=== PATIENT | male | born 1950 | race Caucasian/White ===

== ENCOUNTER → 2016-09-30 | Outpatient (CLI) | payer OTHER ==
[~2016-09-30] MED LIST: ASPEC325 PO; CALC500C70 PO; DICL-201 PO; FISHOIL PO; METF500T PO; MULTTAB58 PO; PANT1TAB48 PO
== END | disposition home or self-care (01) ==
LOC: C.LABSPEC 17:01
PROVIDERS: ATTEND Podiatrist
DX: Z48.817 Encounter for surgical aftercare following surgery on the skin and subcutaneous tissue (principal); M79.675 Pain in left toe(s)

== ENCOUNTER → 2017-10-18 | Day surgery (SDC) | payer OTHER ==
[2017-10-01 14:10] VITALS: Ht 177.8 cm; Wt 109.1 kg
[~2017-10-18] VITALS: Ht 177.8 cm; Wt 109.1 kg
[~2017-10-18] MED LIST changes: +ASPCH81X PO; -ASPEC325 PO; -CALC500C70 PO; +CALCTAB5 PO; +FERR1TAB23 PO; -FISHOIL PO; +GLC/500 PO; +LABETALOL HCL IV 5 MG/ML 20ML IV ONE; +LIDOCAINE HCL 2% 2 ML VIAL (20MG/ML) ONE; +LOSA1TAB PO; -METF500T PO; +MULT-1093 PO; -MULTTAB58 PO; +PANT1TAB3 PO; -PANT1TAB48 PO; +PROPOFOL IV EMULSION 10 MG/ML 20 ML VIAL IV ONE; +SODIUM CHLORIDE 0.9% 500ML 500 ML IV ONE; +VITAMIN C PO
--- NOTE | 2017-10-18 13:24 | Endo History and Physical ---
History & Physical Date of Service: Oct 18, 2017. Chief Complaint: Gonzales's Esophagus Referring Physician: Saleem Lombardi History of Present Illness 66 yo CM who presents for EGD secondary to Gonzales's esophagus. Past Medical History Arthritis, Reflux, Other Past Surgical History Hx Cardiac Surgery: No Hx Internal Defibrillator: No Hx Pacemaker: No Hx Abdominal Surgery: No Hx of Implantable Prosthesis: No Hx Post-Op Nausea and Vomiting: No Hx Cancer Surgery: No Hx Thoracic Surgery: No Hx Orthopedic: Yes (LEFT/RT TKA, RT SHOULDER SURGERY) Hx Urinary Tract Surgery: No Family History None Social History Smoking Status: Former Smoker Hx Substance Use: No Hx Alcohol Use: Yes (OCCASIONALLY) Allergies Coded Allergies: Penicillins (Unverified Allergy, Unknown, COLD/HOT FLASHES UPSET STOMACH, 10/18/17) Cephalexin (Verified Adverse Reaction, Unknown, gi upset-vomiting, 10/18/17 ) Cephalosporins (Verified Adverse Reaction, Unknown, GI UPSET, 10/18/17) Current Medications Reported Home Medications Medications Dose Route/Sig Max Daily Dose Days Date Category Dose Instructions [Vitamin C] 1 Tab PO HS 10/01/17 Reported Iron (Ferrous Sulfate) 325 Mg Tab 1 Tab PO HS 10/01/17 Reported Caltrate 600 (Calcium Carbonate) 1,500 Mg Tab 1 Tab PO QAM 10/01/17 Reported Centrum Silver 50+Men (Multiple Vitamins W/ Minerals) 1 Tab Tab 1 Tab PO HS 10/01/17 Reported Aspirin Chewable (Aspirin) 81 Mg Chew 81 Mg PO HS 10/01/17 Reported Protonix (Pantoprazole) 40 Mg Tab 40 Mg PO QAM 10/01/17 Reported Cozaar (Losartan Potassium) 25 Mg Tab 25 Mg PO QAM 10/01/17 Reported Voltaren (Diclofenac Sodium) 75 Mg Tabcr 75 Mg PO QAM 10/01/17 Reported WITH FOOD Glucophage (Metformin Hcl) 500 Mg Tab 500 Mg PO BID 10/01/17 Reported Vital Signs Weight (Kilograms): 109.09 Height (Feet): 5 Height (Inches): 10 Date Time Temp Pulse Resp B/P (MAP) Pulse Ox O2 Delivery O2 Flow Rate FiO2 10/18/17 13:04 36.4 58 18 137/92 (107) 97 Room Air Physical Exam General Appearance: WD/WN, no apparent distress Respiratory/Chest: Auscultation: breath sounds normal Cardiovascular: Heart Auscultation: RRR Abdomen: Bowel Sounds: normal Inspection & Palpation: soft, non-distended, no tenderness, guarding & rebound Assessment and Plan Assessment: 66 yo CM who presents for EGD secondary to Gonzales's esophagus. Plan: Proceed with EGD.
--- NOTE | 2017-10-18 14:25 | GI REPORT ---
Procedure Date: 10/18/2017 2:01 PM Procedure: Upper GI endoscopy Indications: Follow-up of Gonzales's esophagus Medicines: Monitored Anesthesia Care Complications: No immediate complications. Estimated Blood Loss: Estimated blood loss: none. Procedure: Pre-Anesthesia Assessment: - Prior to the procedure, a History and Physical was performed, and patient medications and allergies were reviewed. The patient's tolerance of previous anesthesia was also reviewed. The risks and benefits of the procedure and the sedation options and risks were discussed with the patient. All questions were answered, and informed consent was obtained. Prior Anticoagulants: The patient has taken no previous anticoagulant or antiplatelet agents. ASA Grade Assessment: II - A patient with mild systemic disease. After reviewing the risks and benefits, the patient was deemed in satisfactory condition to undergo the procedure. After obtaining informed consent, the endoscope was passed under direct vision. Throughout the procedure, the patient's blood pressure, pulse, and oxygen saturations were monitored continuously. The scope was introduced through the mouth, and advanced to the second part of duodenum. The upper GI endoscopy was accomplished with ease. The patient tolerated the procedure well. Findings: There were esophageal mucosal changes consistent with short-segment Gonzales's esophagus present at the gastroesophageal junction. The maximum longitudinal extent of these mucosal changes was 2 cm in length. Mucosa was biopsied with a cold forceps for histology. One specimen bottle was sent to pathology. A small hiatal hernia was present. The examined duodenum was normal. Impression: - Esophageal mucosal changes consistent with short-segment Gonzales's esophagus. Biopsied. - Small hiatal hernia. - Normal examined duodenum. Recommendation: - Resume previous diet. - Continue present medications. - Await pathology results. - Return to primary care physician as previously scheduled. Bart Lamas, DO 10/18/2017 2:24:19 PM This report has been signed electronically. Note Initiated On: 10/18/2017 2:01 PM I attest to the content of the Intraoperative Record and orders documented therein, exceptions below
--- NOTE | 2017-10-18 14:35 | Anesthesiology Progress Note ---
Anesthesia Post Op Note Date & Time Oct 18, 2017 at 14:34 Vital Signs Pain Intensity: 0 Vital Signs Past 12 Hours Date Time Temp Pulse Resp B/P (MAP) Pulse Ox O2 Delivery O2 Flow Rate FiO2 10/18/17 14:15 72 18 144/89 (107) 96 Room Air 10/18/17 13:04 36.4 58 18 137/92 (107) 97 Room Air Notes Mental Status: alert / awake / arousable, participated in evaluation Pt Amnestic to Procedure: Yes Nausea / Vomiting: adequately controlled Pain: adequately controlled Airway Patency, RR, SpO2: stable & adequate BP & HR: stable & adequate Hydration State: stable & adequate Anesthetic Complications: no major complications apparent
--- NOTE | 2017-10-18 14:58 | Discharge Instructions ---
Endoscopy Patient Instructions Date / Procedure(s) Performed Oct 18, 2017. EGD Allergy Information Coded Allergies: Penicillins (Unverified Allergy, Unknown, COLD/HOT FLASHES UPSET STOMACH, 10/18/17) Cephalexin (Verified Adverse Reaction, Unknown, gi upset-vomiting, 10/18/17 ) Cephalosporins (Verified Adverse Reaction, Unknown, GI UPSET, 10/18/17) Discharge Date / Findings Oct 18, 2017. Gonzales's Esophagus s/p biopsies Hiatal hernia Medication Instructions Stopped Medication(s): EVERYTHING EXCEPT PROTONIX OK to resume all medications today as prescribed Reported Home Medications Medications Dose Route/Sig Max Daily Dose Days Date Category Dose Instructions [Vitamin C] 1 Tab PO HS 10/01/17 Reported Iron (Ferrous Sulfate) 325 Mg Tab 1 Tab PO HS 10/01/17 Reported Caltrate 600 (Calcium Carbonate) 1,500 Mg Tab 1 Tab PO QAM 10/01/17 Reported Centrum Silver 50+Men (Multiple Vitamins W/ Minerals) 1 Tab Tab 1 Tab PO HS 10/01/17 Reported Aspirin Chewable (Aspirin) 81 Mg Chew 81 Mg PO HS 10/01/17 Reported Protonix (Pantoprazole) 40 Mg Tab 40 Mg PO QAM 10/01/17 Reported Cozaar (Losartan Potassium) 25 Mg Tab 25 Mg PO QAM 10/01/17 Reported Voltaren (Diclofenac Sodium) 75 Mg Tabcr 75 Mg PO QAM 10/01/17 Reported WITH FOOD Glucophage (Metformin Hcl) 500 Mg Tab 500 Mg PO BID 10/01/17 Reported Provider Instructions Activity Restrictions - No exercising or heavy lifting for 24 hours. - Do not drink alcohol the day of the procedure. - Do not drive a car or operate machinery until the day after the procedure. - Do not make any important decisions or sign important papers in 24 hours after the procedure. Following Day: - Return to full activity which may include returning to work/school. Diet Start your diet with liquids and light foods (jello, soup, juice, toast). Then eat your usual diet if not nauseated. Treatment For Common After Affects For mild abdominal pain, bloating, or excessive gas: - Rest - Eat lightly - Lie on right side Follow-Up Information Follow-up with as scheduled Anesthesia Information What You Should Know You have had a procedure that required some medicine to reduce anxiety and discomfort. This treatment is called moderate sedation. After receiving the treatment, you may be sleepy, but you will be able to breathe on your own. The effects of the treatment may last for several hours. Follow these instructions along with Activity/Diet recommendations noted above: * Do NOT do anything where dizziness or clumsiness would be dangerous. * Rest quietly at home today, then you can be up and about tomorrow. * Have a responsible person stay with you the rest of today. * You may have had an I.V. today. If so, you may take the dressing off later today. Recommendations Call your doctor if: * Trouble breathing * Continuous vomiting for more than 24 hours * Temperature above 101 degrees * Severe abdominal pain or bloating * Pain not relieved by pain medicine ordered * There is increased drainage or redness from any incision * A large amount of rectal bleeding greater than 2-3 tablespoons. (If you had a polyp/s removed or have hemorrhoids, a small amount of blood - from the rectum is to be expected.) * You have any unanswered questions or concerns. IN THE EVENT OF A SERIOUS EMERGENCY, GO TO THE NEAREST EMERGENCY ROOM Your discharge instructions were prepared by provider Bart Lamas. Patient Instructions Signature Page Tai Patten Patient (or Guardian) Signature/Date: I have read and understand the instructions given to me by my caregivers. Caregiver/RN/Doctor Signature/Date: The above-named patient and/or guardian has received patient instructions on this date. + Original Patient Signature Page (only) stays with chart. Please make copy for patient.
[2017-10-18 15:02] VITALS: BP 147/93; PULSE 54; O2SAT 97
== END | disposition home or self-care (01) ==
LOC: C.GI 12:16
PROVIDERS: ATTEND Internal Medicine
DX: K20.9 Esophagitis, unspecified (principal); K22.70 Barrett's esophagus without dysplasia; M19.90 Unspecified osteoarthritis, unspecified site; K44.9 Diaphragmatic hernia without obstruction or gangrene; K21.9 Gastro-esophageal reflux disease without esophagitis; Z96.653 Presence of artificial knee joint, bilateral; Z87.891 Personal history of nicotine dependence; Z88.0 Allergy status to penicillin; Z88.2 Allergy status to sulfonamides; Z79.82 Long term (current) use of aspirin; Z79.899 Other long term (current) drug therapy; Z79.84 Long term (current) use of oral hypoglycemic drugs

== ENCOUNTER 2022-04-22 08:22 | Inpatient (IN) ==
--- NOTE | 2022-03-24 16:28 | PAT Medication Instructions ---
Medication Instructions Date of Service March 24, 2022 Home Medications Medication Instructions Recorded losartan 50 mg tablet 50 mg PO QAM 90 days #90 tabs 02/26/21 pantoprazole 40 mg tablet,delayed 40 mg PO QAM #90 tabs 10/07/21 release metformin 500 mg tablet 500 mg PO BID #180 tabs 02/12/22 diclofenac sodium 75 mg 75 mg PO BID #180 tabs 03/24/22 tablet,delayed release ascorbic acid (vitamin C) 500 mg tablet (Vitamin C) 500 mg PO QAM aspirin 81 mg tablet,delayed release (Sil Low Dose Aspirin) 81 mg PO HS calcium carbonate 600 mg calcium (1,500 mg) tablet 600 mg PO QAM ferrous sulfate 325 mg (65 mg iron) tablet 325 mg PO HS clindamycin HCl 300 mg capsule 600 mg PO UD PRN losartan 50 mg tablet 50 mg PO QAM pantoprazole 40 mg tablet,delayed release 40 mg PO QAM biotin 5 mg capsule 5 mg PO QAM multivitamin 1 tab PO QAM vitamin B complex (B Complex-Vitamin B12 tablet) 1 tab PO QAM metformin 500 mg tablet 500 mg PO BID diclofenac sodium 75 mg tablet,delayed release 75 mg PO BID losartan 25 mg tablet 25 mg PO HS Continue as directed clindamycin HCl 300 mg capsule 600 mg PO UD PRN(if needed) ASK your surgeon for instructions diclofenac sodium 75 mg tablet,delayed release 75 mg PO BID STOP taking 2 weeks before surgery biotin 5 mg capsule 5 mg PO QAM DO NOT take the morning of surgery ascorbic acid (vitamin C) 500 mg tablet (Vitamin C) 500 mg PO QAM calcium carbonate 600 mg calcium (1,500 mg) tablet 600 mg PO QAM losartan 50 mg tablet 50 mg PO QAM multivitamin 1 tab PO QAM vitamin B complex (B Complex-Vitamin B12 tablet) 1 tab PO QAM metformin 500 mg tablet 500 mg PO BID Take morning of surgery With a small sip of water, OTHERWISE NOTHING TO EAT OR DRINK AFTER MIDNIGHT: pantoprazole 40 mg tablet,delayed release 40 mg PO QAM Take evening before surgery aspirin 81 mg tablet,delayed release (Sil Low Dose Aspirin) 81 mg PO HS (unless directed otherwise by surgeon) ferrous sulfate 325 mg (65 mg iron) tablet 325 mg PO HS metformin 500 mg tablet 500 mg PO BID losartan 25 mg tablet 25 mg PO HS Other Notes If you have any questions please call us at [phone] or [phone] or [phone] or [phone]
--- NOTE | 2022-04-01 08:56 | Anesthesiology Consultation ---
Date of Service April 01, 2022 Assessment & Plan (1) Encounter for pre-operative examination: - COVID screening: Per assessment on 03/24: No known COVID-19 positive contacts or current COVID-19 related symptoms. Travel screen negative. Patient vaccinated. At surgeon discretion if preop Covid testing being done. - S/P Colonoscopy (11/26/21): MAC at [facility] - S/P Right TKA (09/27/15): SAB at L3/4 (x3 attempts) + PNB. Per anesthesia record, several unsuccessful attempts midline, one successful paramedian attempt at [facility]. - Check [facility] AM DOS Chart Review Chart Review: Acceptable Risk for Surgery and Patient seen in Pre Admission Testing Teaching & Discussion Pre-Anesthesia Teaching/Discussion Notes: Instructed NPO after midnight before surgery,except medications with 15 cc of water. Medication instructions provided according to the PAT guidelines. History Surgery Operation Date: 04/22/22 09:05 Proposed Procedures p Left Total Knee Revision, Possible Antibiotic Spacer Placement - Mukund Nguyen MD Height/Weight Height: 5 ft 9 in Weight: 105.9 kg Allergies Allergy/AdvReac Type Severity Reaction Status Date / Time Penicillins AdvReac Intermediate Cold/hot Verified 03/27/22 09:05 flashes, upset stomach Cephalosporins AdvReac Mild GI upset Verified 03/27/22 09:05 Medications Home Medications Medication Instructions Recorded Confirmed Last Taken ascorbic acid (vitamin C) 500 mg 500 mg PO QAM 07/11/18 03/24/22 11/25/21 08:00 tablet (Vitamin C) aspirin 81 mg tablet,delayed 81 mg PO HS 07/11/18 03/24/22 11/24/21 21:00 release (Sil Low Dose Aspirin) calcium carbonate 600 mg calcium 600 mg PO QAM 07/11/18 03/24/22 11/25/21 08:00 (1,500 mg) tablet ferrous sulfate 325 mg (65 mg 325 mg PO HS 07/11/18 03/24/22 11/24/21 21:00 iron) tablet clindamycin HCl 300 mg capsule 600 mg PO UD PRN prior to dental 09/03/20 03/24/22 Unknown appointment losartan 50 mg tablet 50 mg PO QAM 90 days #90 tabs 02/26/21 03/24/22 11/26/21 06:00 pantoprazole 40 mg tablet,delayed 40 mg PO QAM #90 tabs 10/07/21 03/24/22 11/26/21 06:00 release biotin 5 mg capsule 5 mg PO QAM 10/23/21 03/24/22 11/25/21 08:00 multivitamin 1 tab PO QAM 10/23/21 03/24/22 11/25/21 08:00 vitamin B complex (B 1 tab PO QAM 10/23/21 03/24/22 11/25/21 08:00 Complex-Vitamin B12 tablet) metformin 500 mg tablet 500 mg PO BID #180 tabs 02/12/22 03/24/22 Unknown diclofenac sodium 75 mg 75 mg PO BID #180 tabs 03/24/22 03/24/22 Unknown tablet,delayed release losartan 25 mg tablet 25 mg PO HS 03/24/22 03/24/22 Unknown Past Medical History Medical History 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 Hiatal hernia History of basal cell carcinoma History of COVID-19 Dx 04/2021, mild symptoms at time, resolved Hypertension Lumbar radiculopathy Obesity Painful total knee replacement, left Prediabetes Reason for Metformin Spinal stenosis of lumbar region Exercise / Class Metabolic Activity II 4-5 Yardwork/Stairs/Walk up hill (one FS (no CP, no SOB)) Past Family History Family History Father Prostate cancer Family history of diabetes mellitus Other No family history of adverse response to anesthesia Denies family history of Colon cancer Ovarian cancer Myocardial infarction Breast cancer Past Surgical History Surgical History History of arthroscopy of left knee History of basal cell carcinoma (BCC) excision History of colonoscopy Colonoscopy (11/26/21): MAC at [facility] History of esophagogastroduodenoscopy (EGD) History of shoulder surgery Right shoulder History of tonsillectomy History of tooth extraction History of total left knee replacement (TKR) History of total right knee replacement (TKR) Right TKA (09/27/15): SAB at L3/4 (x3 attempts) + PNB. Per anesthesia record, several unsuccessful attempts midline, one successful paramedian attempt at [facility]. Hx of LASIK Status post epidural steroid injection Past Anesthesia History No Hx of Anesthesia Complications and No Family Hx of Anesthesia Complications History of PONV No Hx of PONV and No Hx of Motion Sickness Social History Smoking Status: Former smoker tobacco type: cigarettes Do You Dip or Chew Tobacco: No Smoking End Date: Quit 20 years ago Hx Alcohol Use: Yes Alcohol type: beer alcohol intake frequency: holidays/special occasions only Hx Substance Use: No substance use type: does not use Review of Systems Patient denies chest pain, shortness of breath, dyspnea on exertion, fever, chills, cough, wheezing, palpitations. Physical Exam Vital Signs VITALS BP 144/85 P 58 TEMP 97.6 SP02 97%RA RESP 16 PHYSICAL Full cervical extension range of motion. Full TMJ range of motion. TMD 3.5 finger breaths Mallampati Score 2 Dentition: intact Lungs: clear throughout to auscultation Cardiac: regular rate and rhythm, no murmurs noted Spine: normal Carotid arteries: negative bruit Extremities: no edema Short neck Lab Results Anesthesia Preop Results Results Anesthesia Widget: WBC 5.51 K/ul (4.8-10.8) 04/01/22 Hgb 15.1 g/dl (14.0-18.0) 04/01/22 Hct 44.0 % (40.1-51.0) 04/01/22 Plt 262 K/uL (130-400) 04/01/22 Na 139 mmol/L (136-145) 04/01/22 K 4.3 mmol/L (3.5-5.1) 04/01/22 Cl 106 mmol/L (98-107) 04/01/22 CO2 28 mmol/L (21-32) 04/01/22 BUN 20 mg/dl (6-23) 04/01/22 Creat 0.85 mg/dl (0.6-1.4) 04/01/22 Glucose Level 107 mg/dl (70-99(Fasting)) H 04/01/22 PT 10.5 Seconds (9.0-12.0) 04/01/22 PTT 28.9 Seconds (21.0-31.0) 04/01/22 INR 1.0 (0.9-1.1) 04/01/22 Blood Type O Positive 04/01/22 Antibody Screen NEGATIVE 04/01/22 Testing Laboratory Results 11/21/21 HGBA1C 6.2% Electrocardiogram Date: 04/01/22 SB at 59bpm. unconfirmed report. Chest X-Ray Date: 04/01/22 Findings: + NAD COVID-19 Risk Screen Screening Information COVID-19 Screen Date: 04/01/22 Exposure 21 Days Family/Household +COVID Last 21 Days: No Exposure 10 Days Any COVID Exposure Last 10 Days: No Symptoms Last 10 Days Experienced COVID Sx Last 10 Days: No + COVID 0-90 Days COVID + in Last 0-90 Days: No
--- NOTE | 2022-04-18 19:47 | History and Physical Report ---
DATE OF ADMISSION: 04/22/2022 CHIEF COMPLAINT: Left knee pain, discomfort and swelling after knee replacement surgery. HISTORY OF PRESENT ILLNESS: The patient is a 71-year-old gentleman who is now about 8 years out from a left knee replacement and 6 years out from his right. He has done well until about 4-5 months ago when he developed insidious onset of left knee pain and discomfort. We treated him conservatively f or a short period of time, but his symptoms persisted. He has quite a bit of startup pain. There wa s no trauma. We did do an infectious workup, which was negative. Sed rate and C-reactive protein we re normal. We did aspirate his knee and sent it off for analysis, which revealed 1000 white cells an d 20% polys. Culture was no growth. Fluid was sent for Synovasure testing, which was negative. He continues to have significant disabling pain in his left knee with weightbearing. It does not bother him too much when he is sitting. X-rays and bone scan suggested femoral loosening. The patient has elected to proceed with surgical revision. PAST MEDICAL HISTORY: Significant for: 1. Back pain/sciatica. 2. Gastroesophageal reflux disease. 3. Skin cancer. 4. Fairly well controlled diabetes. PAST SURGICAL HISTORY: Includes: 1. Left knee replacement on done 10/16/2013. 2. Right knee replacement in 2016. 3. Right shoulder surgery. ALLERGIES: None. CURRENT MEDICATIONS: Include: 1. Vitamin C. 2. Baby aspirin. 3. Biotene. 4. Calcium carbonate. 5. Diazepam. 6. Diclofenac. 7. Iron sulfate. 8. Losartan. 9. Metformin. 10. Multivitamin. 11. Pantoprazole. SOCIAL HISTORY: A 71-year-old male. He is . Does not smoke. She drinks per week. FAMILY HISTORY: Noncontributory. REVIEW OF SYSTEMS: Significant for diabetes, fairly well controlled. No chest pain or shortness of breath. No history of DVT or PE. No known bleeding problems. PHYSICAL EXAMINATION: GENERAL: Shows a pleasant middle-aged male. Looks to be in good health. HEENT: Benign. NECK: Supple. No lymphadenopathy. LUNGS: Clear to auscultation. HEART: Has a regular rate and rhythm. ABDOMEN: Soft, nontender, nondistended. EXTREMITIES: Grossly neurovascularly intact except as follows: Examination of the left knee reveals patient walks with a slight bit of a limp on his left leg, particularly when he first gets up. He h as got a small knee effusion. No redness or warmth to the knee. Range of motion 0-125. No obvious instability. X-RAYS: X-rays of the left knee were reviewed. It shows a left knee replacement to be in good posit ion. It does look like he may have some subsidence of the femoral component, and in the distal femur , a little lucency around the anterior flange of the femoral component. He does have some fragmentat ion of the patella on the other side. Bone scan; bone scan was also reviewed. It shows increased uptake particularly in the femoral area. The tibia looks pretty normal. LABORATORY RESULTS: Knee aspirate revealed 1000 white cells with 20% polys, 80% mononuclear cells and negative culture growth. Synovasure test was negative for infection. ASSESSMENT: A 71-year-old gentleman, 8 years out from the left knee replacement, with what looks to be aseptic femoral loosening. He has failed conservative care. It is disabling and he would like t o have his knee fixed. PLAN: We are going to take him to the operating room and do a revision knee replacement. If we get in there, there is infection, we will obviously place an antibiotic spacer, but I think that is unlik nicole. We will proceed with a total knee revision. Risks and benefits of this procedure were explaine d to the patient and include but not limited to DVT, PE, , infection, neurological injury, vascu lar injury, bleeding problem, pain, limited range of motion, stiffness, failure to relieve his sympto ms, incomplete relief of symptoms, need for further surgery in the future, etc. The patient understa nds and desires to proceed. Informed consent was obtained. We will use insulin sliding scale coverage. He is planning to be discharged to home using outpatient therapy. Job ID: [id number]
[~2022-04-22 08:22] MED LIST changes: +ACETAMINOPHEN 500 MG TAB PO SCH; -ASPCH81X PO; +BUPIVACAINE 0.5 % 5 MG/1 ML PF 10ML VIAL ONE; +BUPIVACAINE LIPOSOME/PF 266 MG, BUPIVACAINE/EPINEPHRINE 50 ML, SODIUM CHLORIDE 0.9% 30 ... INFIL SCH; -CALCTAB5 PO; +CeleBREX 200 MG CAP PO SCH; -DICL-201 PO; +FAMOTIDINE 20 MG TAB PO SCH; -FERR1TAB23 PO; -GLC/500 PO; -LABETALOL HCL IV 5 MG/ML 20ML IV ONE; -LIDOCAINE HCL 2% 2 ML VIAL (20MG/ML) ONE; -LOSA1TAB PO; +LR 500ML BOLUS, THEN 15ML/HR IV SCH; +LR 60ML/HR IV SCH; +METOCLOPRAMIDE HCL 10 MG TABLET PO SCH; -MULT-1093 PO; -PANT1TAB3 PO; -PROPOFOL IV EMULSION 10 MG/ML 20 ML VIAL IV ONE; +ROPIVACAINE 0.5% 5 MG/ML 30 ML VIAL ONE; -SODIUM CHLORIDE 0.9% 500ML 500 ML IV ONE; +TRANEXAMIC ACID 1,000 MG **IV Intra-op IV SCH; -VITAMIN C PO; +ceFAZolin 2000MG 2,000 MG/15 ML SYR IV SCH
--- NOTE | 2022-04-22 09:44 | History & Physical Bridge Note ---
Date of Service April 22, 2022 History & Physical Bridge Note I have examined the patient, reviewed the History & Physical and in the interval since the performance of the History & Physical I have noted the following changes of clinical significance: no changes noted
[2022-04-22] MEDS ORDERED: MIDAZOLAM HCL 1 MG/ML 2ML VIAL ONE ×3 (10:00→13:32)
[2022-04-22] MEDS ORDERED: ATROPINE SULFATE 0.1 MG/ML 10ML SYR IV PRN (10:19)
[2022-04-22] MEDS ORDERED: fentaNYL citrate 100 MCG/2 ML VIAL IV PRN (10:19)
[2022-04-22] MEDS ORDERED: ePHEDrine sulfate 50 MG/ML AMP IV PRN (10:19)
[2022-04-22] MEDS ORDERED: ONDANSETRON INJ 2 MG/ML 2 ML VIAL IV PRN ×2 (10:19→15:55)
[2022-04-22] MEDS ORDERED: VANCOMYCIN HCL 1000MG/20ML VIAL ONE (11:18)
[2022-04-22] MEDS ORDERED: SODIUM CHLORIDE 0.9% PF 50 ML VIAL ONE (11:18)
[2022-04-22] MEDS ORDERED: BUPIVACAINE/EPINEPHRINE 0.25% 1:200,000 30 ML VIAL ONE (11:18)
[2022-04-22] MEDS ORDERED: BUPIVACAINE LIPOSOME 1.3% 266 MG/20 ML VIAL ONE (11:19)
[2022-04-22] MEDS ORDERED: PROPOFOL IV EMULSION 10 MG/ML 20 ML VIAL IV ONE ×5 (11:26→14:25)
[2022-04-22] MEDS ORDERED: KETAMINE 50 MG/5 ML SYRINGE ONE (12:09)
[2022-04-22] MEDS ORDERED: GLYCOPYRROLATE 0.2 MG/ML VIAL ONE (12:10)
[2022-04-22] MEDS ORDERED: ONDANSETRON INJ 2 MG/ML 2 ML VIAL ONE (12:10)
--- NOTE | 2022-04-22 14:51 | Operative Report ---
PG Post Operative Report Pre & Post Diagnosis Operation Date: 04/22/22 10:55 Pre-Op Diagnosis: Painful Left Total Knee due to aseptic loosening of the femoral component. 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 Fairly mild synovitis. Was hemorrhagic in nature. The femoral component was grossly loose. The tibial component was not loose. Patella was well fixed. Minimal patella wear. There was some polyethylene wear. There is no signs of infection. Specimens Left knee joint fluid sent for stat gram stain, aerobic culture, anaerobic culture. Left knee synovium sent for frozen section which revealed 0 polys per high-power field. Anesthesia Type Spinal MAC Complications none Disposition Accompanied Patient To Recovery: No Indications Patient is 71-year-old gentleman about 8 years out from a left knee replacement. He had his right knee replaced about 6 years ago. He is done well with his knee replacements until about 4 to 5 months ago he developed insidious onset of left left knee pain discomfort and swelling. Is been through extensive conservative treatment as well as an extensive infectious work-up which showed no signs of infection. X-ray suggested femoral loosening which is also suggested on bone scan. Patient elected proceed with surgical management. He did have fairly classic start up type pain. Description of Procedure Operative implants consist of: 1. Biomet Vanguard III 160 left size 65 femoral component with an 80 x 18 mm stem, 2.5 mm offset. Femoral implant had 5 mm distal lateral augment, 10 mm distal medial augment, and 5 mm posterior medial and posterior lateral augments. 2. Biomet Vanguard III 160 size 79 tibial tray with a 16 x 80 offset stem with a 5 mm offset and a small cruciate wing. 3. 14 mm posterior stabilized polyethylene plus insert. The patient was taken the operating, identified, placed on the operating table supine position protectors were properly padded. IV antibiotics tried by an esthesia team. A spinal anesthetic of implemented holding area along with an abductor canal block. A Delgado catheter was placed in sterile fashion. A left thigh tent was then placed in the left lower extremities and prepped and draped in usual sterile fashion. The left leg was elevated exsanguinated with use of an Esmarch and the tourniquet was set at 300 mmHg. An anterior approach left knee was then performed through a longitudinal incision using the previous incision site. Sharp dissection was carried through subcutaneous tissue down the extensor mechanism. A medial parapatellar arthrotomy incision was made. Some subperiosteal dissection was carried out medially. Extensive synovectomy was performed. This was sent off for frozen section revealed 0 polys per high-power field. Joint fluid was also sent for stat gram stain, aerobic culture anaerobic culture. Complete synovectomy was performed and then the patella was subluxated and the knee was flexed. I then remove the femoral component using stacked osteotome technique. Came off quite easily. The tibial component was well fixed. We defined the edges of the component, used a saw to loosen up the edges and then the osteotome and a stacked osteotome technique to remove the tibial tray. We will do this minimal bone destruction. All cement was then removed. Once the cement was removed we began preparing the tibia. The tibia was reamed up to a size 18. The reamer was left in place and the IM cutting guide was placed in the proximal tibial cut was made to remove about 4 mm of bone from the medial side. This provided nice surface. Was sized to a size 79. The tibial tray was prepared for a 80 x 16 offset stem with the 5 mm offset and a small cruciate wing. The stem was assembled and placed and fit nicely. Attention drawn the femur. The distal femur was entered with sharp drill. I reamed up to a size 18. The distal cutting block was placed for the 5 degree cut. The distal femoral cut was made to take a little extra bone off both the medial and lateral sides and cut for 5 mm augments on the lateral side and a 10 mm augment on the medial side. We elected to upsize the femur due to the small nature of the previous component and the larger medial and lateral dimensions. We used a 65 AP cutting block guide in the anterior cut, anterior chamfer, posterior cut, posterior chamfer cuts were made. The box cutting guide was assembled to the IM stem in place. The bucket box cut was made. I did cut for a 5 mm posterior medial posterior lateral augments which really were free cuts as this implant was a bigger than his previous implant. We then assembled the trial femoral component placed and fit nicely. We trialed the knee and the 14 mm insert fit most appropriate. There still was a little bit of laxity in extension so I did elect to place a PS plus insert. All trial implants were removed. I irrigated the wound and debrided all bony edges of all soft tissue. Double batch Palacos G cement was mixed with 2 additional grams of vancomycin. Implants were then cemented in place cementing up into the metaphyseal region. The knee was brought out in full extension total cement hardened. Final cement check was then performed. Pericapsular tissues were injected with total 100 cc of combination of 20 cc of Exparel, 30 cc normal saline, 50 cc of quarter percent Marcaine with epinephrine. Patient did receive 1 g tranexamic acid. The tourniquet was let down for turn time 17 minutes. Hemostasis reduced electrocautery. Extensor mechanism closed with combination 1 PDS suture and #1 Vicryl suture in [id number] fashion. Extensor mechanism checked found to be intact and subcutaneous tissue then closed with 2 Dexon suture in a buried interrupted fashion skin was closed skin eloise. Leg was then cleaned and dried a sterile dressing was Xeroform, 4 x 4's, sterile cast padding, Marcelino bandage applied. Patient then transferred to the recovery room in stable condition. Patient tolerated procedure well and there were no complications. Mayank Strickland, my physician infertility medical assistant, was present for the entire procedure. His assistance was essential and required for appropriate patient positioning, prepping and draping, surgical exposure, performing the technical details of the operation, placement the implants, closure of the wound, and placement of the sterile bandage. I attest to the content of the Intraoperative Record and any orders documented therein. Any exceptions are noted below.
--- NOTE | 2022-04-22 15:18 | XRay Report ---
TWO VIEWS RIGHT KNEE CLINICAL HISTORY: Right knee arthroplasty. The right knee was imaged by mistake following left knee surgery and the patient will not be charged for this procedure. FINDINGS: AP and crosstable lateral portable views of the right knee are compared to study dated 2015. A right knee arthroplasty is in near anatomic alignment. There has been undersurface remodeling of the patella. No periprosthetic lucency is identified. No acute fracture is seen. No joint effusio n is identified. The overlying soft tissues are normal as imaged. IMPRESSION: No acute bony abnormality is identified noting a right knee arthroplasty in near anatomic alignment.. ACT 112: Negative or not required by law. Electronically signed by: David Khoury M.D. 04/22/2022 3:17 PM
--- NOTE | 2022-04-22 15:26 | XRay Report ---
TWO VIEWS LEFT KNEE CLINICAL HISTORY: Postoperative examination. FINDINGS: AP and crosstable lateral portable views of the left knee are obtained. A left knee arthrop lasty is in near anatomic alignment. There are long tibial and femoral stems. There has been undersur face remodeling of the patella. No acute fracture is seen. There are expected postoperative changes a round the knee including skin clips, soft tissue edema, and subcutaneous gas. IMPRESSION: Expected postoperative changes status post left knee arthroplasty. No acute fracture is s een. ACT 112: Negative or not required by law. Electronically signed by: David Khoury M.D. 04/22/2022 3:25 PM
--- NOTE | 2022-04-22 15:43 | Anesthesiology Progress Note ---
Date of Service April 22, 2022 Anesthesia Post Procedure Vital Signs Vital Signs: Temp Pulse Resp BP BP Pulse Ox O2 Del Method 04/22/22 15:30 36.2 C L 62 19 117/81 98 Room Air 04/22/22 15:20 69 16 113/85 99 Room Air 04/22/22 15:00 73 15 101/80 97 Room Air 04/22/22 15:10 67 17 117/74 95 Room Air 04/22/22 14:50 81 15 105/74 100 Oxymask 04/22/22 14:43 36.0 C L 86 15 118/65 98 Oxymask 04/22/22 09:02 36.6 C 80 18 129/91 95 Room Air O2 Flow Rate 04/22/22 15:30 04/22/22 15:20 04/22/22 15:00 04/22/22 15:10 04/22/22 14:50 6 04/22/22 14:43 6 04/22/22 09:02 Pain Intensity Left Knee: Pain Intensity: 3 Transfer of Care Handoff Completed per policy Notes Mental Status: alert / awake / arousable Patient Amnestic to Procedure: Yes Nausea / Vomiting: adequately controlled Pain: adequately controlled Airway Patency, RR, SpO2: stable & adequate BP & HR: stable & adequate Hydration State: stable & adequate Neuraxial Anesthesia: was administered and sensory block is resolving Anesthetic Complications: no major complications apparent
[2022-04-22] MEDS: SODIUM CHLORIDE 0.9% 1000ML 1,000 ML IV SCH (15:50)
[2022-04-22] MEDS ORDERED: GLUCAGON FOR INJ 1 MG VIAL SQ PRN (15:55)
[2022-04-22] MEDS ORDERED: METOCLOPRAMIDE HCL INJ 5 MG/ML 2 ML VIAL IV PRN (15:55)
[2022-04-22] MEDS ORDERED: oxyCODONE HCL IR 5 MG TAB (IMMEDIATE RELEASE) PO PRN (15:55)
[2022-04-22] MEDS ORDERED: ALUMINUM/MAGNESIUM SUSP 30 ML UDC PO PRN (15:55)
[2022-04-22] MEDS ORDERED: GLUCOSE 10 TAB/TUBE PO PRN (15:55)
[2022-04-22] MEDS ORDERED: bisacodyL 10 MG SUPP PR PRN (15:55)
[2022-04-22] MEDS ORDERED: CARBOHYDRATES FOR HYPOGLYCEMIA PO PRN (15:55)
[2022-04-22] MEDS ORDERED: HYDROmorphone INJ 0.5 MG/0.5 ML SYR IV PRN (15:55)
[2022-04-22] MEDS ORDERED: DEXTROSE 50% 50 ML SYRINGE IV PRN (15:55)
[2022-04-22] MEDS ORDERED: GLUCOSE 40% GEL 15 GM TUBE PO PRN (15:55)
[2022-04-22] MEDS ORDERED: PHARMACY GLYCEMIC MGMT CONSULT PRN (15:55)
[2022-04-22] MEDS ORDERED: MAGNESIUM HYDROXIDE SUSP 30 ML UDC PO PRN (15:55)
[2022-04-22] MEDS ORDERED: NALOXONE HCL 0.4 MG/1 ML VIAL/CARP IV PRN (15:55)
[2022-04-22] MEDS: KETOROLAC TROMETHAMINE 15 MG/ML VIAL IV SCH ×2 (17:09→22:20)
[2022-04-22] MEDS: INSULIN ASPART PER UNIT SC SCH ×2 (18:21→21:55)
[2022-04-22] MEDS: ceFAZolin 2000MG 2,000 MG/15 ML SYR IV SCH (20:44)
[2022-04-22] MEDS ORDERED: TRANEXAMIC ACID / 0.7% NACL 1,000 MG/100 ML BAG IV SCH (20:45)
[2022-04-22] MEDS: ASPIRIN 81 MG ECTAB PO SCH (20:49)
[2022-04-22] MEDS: DOCUSATE SODIUM 100 MG CAP PO SCH (20:49)
[2022-04-22] MEDS: DOCUSATE SODIUM/SENNA 50/8.6MG TAB PO SCH (20:49)
[2022-04-22] MEDS: FERROUS SULFATE 325 MG TAB PO SCH (20:50)
[2022-04-22] MEDS: LOSARTAN POTASSIUM 25 MG TAB PO SCH (20:51)
[2022-04-22] MEDS: SENNA 8.6 MG TAB PO SCH (20:51)
[2022-04-22] MEDS: TAPENTADOL HCL ER 50 MG TABCR PO SCH (20:56)
[2022-04-22] MEDS: ACETAMINOPHEN 500 MG TAB PO SCH (21:02)
--- NOTE | 2022-04-22 23:18 | Hospitalist Consultation ---
Date of Consultation April 22, 2022 Assessment & Plan (1) Postoperative fever: This is a 71-year-old male with a history of iron deficiency anemia, hyperlipidemia, prediabetes, hypertension, Gonzales's esophagus, GERD, and degenerative joint disease who presented to [facility] under the care of the orthopedic service for left knee revision in context of aseptic femoral loosening. Following his procedure, he developed postoperative fever and tachycardia for which a medicine consultation was requested. Postoperative Fever - Acute onset of diaphoresis, flushing, tachycardia, and fever in the postoperative period without reported discomfort/symptoms ; subsequently spontaneously resolved - Patient subjectively reports a similar reaction has occurred after receiving Keflex and PCN in the past - Work-up as follows: - Normal RR, SpO2, and BP without respiratory symptoms or appreciable leg swelling on exam - WBC 13 with L shift and lymphopenia - Procal <0.05 ; Elevated CRP 2.28 in the context of post-op period - CXR: Possibly some increase in the medial aspect of the RML/RLL? - Reported history of similar reactions when receiving PCN/Keflex in the past; no rash or edema on exam - Perioperative RX: Metoclopramide, Ancef, spinal anesthesia, vancomycin, tranexamic acid, Toradol - Unclear source at this point. DDX: tissue damage, atelectasis, drug reaction? > perioperative infection (e.g., PNA, UTI) >> VTE - Fever and tachycardia spontaneously resolved early in the evening ; given this, lower acute concern for evolving infection - Continue VTE prophylaxis with ASA b.i.d. - Continue incentive spirometry - reviewed technique with patient - Continue NSS per primary service - At this time, given complete resolution of event, do not believe there is an indication to expand to broad-spectrum ABX - Recheck CBC tomorrow (2) Tachycardia: Tachycardia - Exam and ECG both consistent with sinus tachycardia with intermittent ectopy - Suspect likely secondary to febrile response above, see aforementioned differential - Since it has resolved, do not believe there is a reason to transition to telemetry (3) Gonzales esophagus: GERD/Barretts - Protonix (4) Prediabetes: Prediabetes / HLD - A1c at 6.1% in 10/2021 - Lifestyle modifications ongoing per recent PCP notes - SSI ordered - continue to maintain BSG target range of 100-140 (5) Hypertension: HTN - Continue losartan Plan Code: Full Diet: CC PPX: ASA bid Dispo: MS Supervising Physician Co-Signing Physician Notes Attending addendum: I have physically seen this patient, have supervised the medical residents activities, and agree with the H&P unless as otherwise noted. Assessment and Plan: Medical consult regarding postop fever and increased heart rate- Fever and increased heart rate result without intervention Review pending laboratories No suggestion of ongoing infection Likely secondary to prophylactic cephalosporin given perioperatively, with note of similar reaction to oral Keflex and penicillin in the past Would note cephalosporins as a sensitivity reaction Should patient present with any symptoms suggestive of additional work-up to be performed we will pursue Remaining orders and notations as noted We will follow during hospital stay History of Present Illness Attending Physician: Mukund Nguyen MD History of Present Illness This is a 71-year-old male with a history of iron deficiency anemia, hyperlipidemia, prediabetes, hypertension, Gonzales's esophagus, GERD, and degenerative joint disease who presented to [facility] under the care of the orthopedic service for left knee revision. History and physical reviewed. Patient underwent left knee replacement approximately 8 years ago, and a right knee replacement approximately 6 years ago. 4 to 5 months ago, he did develop worsening left knee discomfort; conservative measures were attempted, but unfortunately did not provide significant relief. Given concern for potential infection, your work-up was performedsynovial fluid aspiration revealed 1000 WBCs with 20% PMNs, in the context of a normal ESR, CRP, and white count. Synovial fluid culture was negative. Impression per orthopedic service was that this likely represented aseptic femoral loosening. Total knee revision was planned and performed on 04/22/[address] Nguyen. Procedure note reviewed; postoperative diagnoses were consistent with a septic femoral loosening. During the procedure, he was discovered to have moderate joint effusion and synovitis with blood-tinged fluid; no overt signs of infection, however joint fluid was sent for gram stain and culture. Synovial fluid observed under the microscope did not reveal any PMNs. Since the procedure, patient was noted to be increasingly tachycardic between 100-140, sinus rhythm. His temperature curve does reveal a steady increase from 34.8 postoperatively at 1600 to a T-max of 38.6 at 2041; his nursing staff reported to me that he had been appearing progressively diaphoretic and flushed. He is currently on Ancef for perioperative antimicrobial coverage. He is on aspirin 81 mg twice daily for VTE prophylaxis. At the time of my visit, he reports feeling fine. He tells me that he did feel real flushed and sweaty before, but it's getting better now. He denies a sensation of palpitations or shortness of breath. His legs feel good and are without pain. He shares with me that he's had similar feelings following administration of amoxicillin and cephalexin in the past - where he gets sweaty and hot for a few hours before spontaneously resolving; he denies h/o rash or issues breathing with this. He denies rash or throat fullness now. He says that prior to right now, he was in his normal health without recent illnesses or sickness. No one at home is sick. Home medications were reviewed and include Tylenol, vitamin C, aspirin, biotin, calcium carbonate, diclofenac twice daily, ferrous sulfate, ketorolac, losartan, metformin, oxycodone, Protonix, tamsulosin, vitamin B ---- This documentation was created utilizing dictation software. As such, syntax, grammatical, and word-choice errors may be present. Notes are screened prior to submission in an attempt to reduce these errors. If there are any questions or concerns, please contact the author directly for clarification. Allergies Allergy/AdvReac Type Severity Reaction Status Date / Time Penicillins AdvReac Intermediate Cold/hot Verified 04/22/22 09:04 flashes, upset stomach Cephalosporins AdvReac Mild GI upset Verified 04/22/22 09:04 Home Medications Medication Instructions Recorded Confirmed Type ascorbic acid (vitamin C) 500 mg 500 mg PO QAM 07/11/18 04/22/22 History tablet (Vitamin C) aspirin 81 mg tablet,delayed 81 mg PO HS 07/11/18 04/22/22 History release (Sil Low Dose Aspirin) calcium carbonate 600 mg calcium 600 mg PO QAM 07/11/18 04/22/22 History (1,500 mg) tablet ferrous sulfate 325 mg (65 mg 325 mg PO HS 07/11/18 04/22/22 History iron) tablet clindamycin HCl 300 mg capsule 600 mg PO UD PRN prior to dental 09/03/20 04/22/22 History appointment losartan 50 mg tablet 50 mg PO QAM 90 days #90 tabs 02/26/21 04/22/22 Rx biotin 5 mg capsule 5 mg PO QAM 10/23/21 04/22/22 History multivitamin 1 tab PO QAM 10/23/21 04/22/22 History vitamin B complex (B 1 tab PO QAM 10/23/21 04/22/22 History Complex-Vitamin B12 tablet) metformin 500 mg tablet 500 mg PO BID #180 tabs 02/12/22 04/22/22 Rx diclofenac sodium 75 mg 75 mg PO BID #180 tabs 03/24/22 04/22/22 Rx tablet,delayed release losartan 25 mg tablet 25 mg PO HS 03/24/22 04/22/22 History pantoprazole 40 mg tablet,delayed 40 mg PO QAM #90 tabs 04/07/22 04/22/22 Rx release acetaminophen 500 mg capsule 1,000 mg PO TID Pain 30 days #180 04/20/22 04/22/22 Rx caps aspirin 81 mg tablet,delayed 81 mg PO BID 45 days #90 tabs 04/20/22 04/22/22 Rx release (Sil Low Dose Aspirin) ketorolac 10 mg tablet 10 mg PO Q6 Pain 5 days #20 tabs 04/20/22 04/22/22 Rx ondansetron HCl 4 mg tablet 4 mg PO Q6 PRN nausea #20 tabs 04/20/22 04/22/22 Rx oxycodone 5 mg tablet 5 - 10 mg PO Q6 PRN pain #40 tabs 04/20/22 04/22/22 Rx sennosides 8.6 mg-docusate sodium 1 tab-cap PO BID #30 tabs 04/20/22 04/22/22 Rx 50 mg tablet (Senokot-S) tamsulosin 0.4 mg capsule (Flomax) 0.4 mg PO DAILY #7 caps 04/20/22 04/22/22 Rx Patient History Medical History 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 Hiatal hernia History of basal cell carcinoma History of COVID-19 Dx 04/2021, mild symptoms at time, resolved Hypertension Lumbar radiculopathy Obesity Painful total knee replacement, left Prediabetes Reason for Metformin Spinal stenosis of lumbar region Surgical History History of arthroscopy of left knee History of basal cell carcinoma (BCC) excision History of colonoscopy Colonoscopy (11/26/21): MAC at [facility] History of esophagogastroduodenoscopy (EGD) History of shoulder surgery Right shoulder History of tonsillectomy History of tooth extraction History of total left knee replacement (TKR) History of total right knee replacement (TKR) Right TKA (09/27/15): SAB at L3/4 (x3 attempts) + PNB. Per anesthesia record, several unsuccessful attempts midline, one successful paramedian attempt at [facility]. Hx of LASIK Status post epidural steroid injection Family History Father Prostate cancer Family history of diabetes mellitus Other No family history of adverse response to anesthesia Denies family history of Colon cancer Ovarian cancer Myocardial infarction Breast cancer Social History Smoking Status: Former smoker Age Started Using Tobacco: 12; Age Quit Using Tobacco: 49; packs per day: 0.5; Smoking End Date: Quit 20 years ago; Second Hand Exposure: No; Do You Dip or Chew Tobacco: No; Tobacco Cessation Education Requested by Patient: No Hx Alcohol Use: Yes Alcohol type: beer Hx Substance Use: No Preferred Language: Liberian Communication Ability: Effective Visual Impairment: No Limitations Hearing Ability: Normal Lip Cutter And Scorer Required: No Beliefs That Will Affect Care: None marital status: Current Living Situation: Spouse current occupational status: employed current occupation: PT- sales work Other Information That Helps Us Care for You: No Feels Safe at Home: Yes Safety Concerns: Feels Safe At This Time Childhood Exposure to Second-Hand Smoke: Yes Dental Care, Regularly: Yes Physical Activity Frequency: 3-4 Times per Week Seatbelt Use: always Sunscreen Use: Yes Assistive Devices: Walker Assistive Devices Comment: reading Review of Systems Review of Systems: as per HPI Physical Exam Physical Exam: General: 71-year old male who is alert, oriented, and appears in no acute distress. He is mildly flushed. He is not diaphoretic. HEENT: NCAT. - Eyes - Sclera are white, anicteric, and without injection. - Mouth - MMM - Neck - supple, no appreciable JVD Cardiac: Tachycardic with regular rhythm and occasional ectopy; S1 and S2 present with no murmurs, rubs, or gallops. Pulmonary: Good respiratory effort with symmetric expansion of the chest. No use of accessory muscles. Lungs were clear to auscultation bilaterally with no crackles or wheezes. Abdominal: Normoactive bowel sounds. Abdomen was soft, nondistended, and non- tender to palpation. Extremities: Upper and lower extremities are warm and well perfused. No peripheral edema in the lower extremities bilaterally - though difficult to assess on LEFT given postoperative wrap. LE strength (at ankle) 5/5. Psych: Well-developed, well-nourished, appropriately dressed for occasion. Behavior is cooperative and appropriate. Affect is WNL. Insight is appropriate. Results & Data Results & Data ([facility]) Vital Signs (Past 12 Hours) Vital Signs Temp Pulse Pulse Resp BP Pulse Ox O2 Del Method 04/22/22 21:35 38.5 C H 132 H 92 Room Air 04/22/22 22:46 38.1 C H 123 H 18 109/71 92 Room Air 04/22/22 20:41 38.6 C H 132 H 16 127/80 92 Room Air 04/22/22 18:52 37.4 C 116 H 20 152/93 H 93 Room Air 04/22/22 18:01 36.3 C L 99 H 17 156/80 H 95 Room Air 04/22/22 17:14 36.3 C L 04/22/22 17:10 36.3 C L 04/22/22 16:00 34.8 C L 04/22/22 17:07 36.3 C L 62 16 147/82 H 97 Room Air 04/22/22 16:20 34.8 C L 69 16 131/86 95 Room Air 04/22/22 15:50 34.8 C L 64 16 124/76 94 Room Air 04/22/22 15:30 36.2 C L 62 19 117/81 98 Room Air 04/22/22 15:20 69 16 113/85 99 Room Air 04/22/22 15:00 73 15 101/80 97 Room Air 04/22/22 15:10 67 17 117/74 95 Room Air 04/22/22 14:50 81 15 105/74 100 Oxymask 04/22/22 14:43 36.0 C L 86 15 118/65 98 Oxymask O2 Flow Rate 04/22/22 21:35 04/22/22 22:46 04/22/22 20:41 04/22/22 18:52 04/22/22 18:01 04/22/22 17:14 04/22/22 17:10 04/22/22 16:00 04/22/22 17:07 04/22/22 16:20 04/22/22 15:50 04/22/22 15:30 04/22/22 15:20 04/22/22 15:00 04/22/22 15:10 04/22/22 14:50 6 04/22/22 14:43 6 Resident Activity Tracking Resident Involvement: Resident Care Provided Care Provided: Adult Hospital Medicine
[2022-04-22 23:59] LABS: Hematocrit (blood only) 38.3 % (40.1-51.0); Hemoglobin 13.5 g/dl (14.0-18.0); Mean Corpuscular Hemoglobin 31.4 pg (25.0-34.0); Mean Corpuscular Hgb Conc 35.2 g/dL (32.0-36.0); Mean Corpuscular Volume 89.1 fL (80.0-100.0); Platelet Count 241 K/uL (130-400); RDW Coefficient of Variation 12.8 % (11.5-14.5); White Blood Count 12.93 K/ul (4.8-10.8)
[2022-04-23 00:19] LABS: Albumin Globulin Ratio 1.4 (0.9-2); Albumin Level 3.6 gm/dl (3.4-5.0); BUN Creatinine Ratio 15.8 (10-20); Bilirubin,Total 0.9 mg/dl (0.2-1.0); C Reactive Protein 2.28 mg/dl (0-0.5); Calcium 8.3 mg/dl (8.5-10.1); Creatinine Clr Calc Pharmacy 79.4 ml/min; Est GFR (African American) 86.3 ml/min; Est GFR (Non-African American) 74.5 ml/min; Globulin 2.5 gm/dl (2.5-4.0); Total Protein 6.1 gm/dl (6.0-8.3)
[2022-04-23 00:20] LABS: Basophils # (auto) 0.03 K/uL (0-0.2); Basophils % (auto) 0.2 %; Immature Granulocytes # (auto) 0.04 K/uL (0.00-0.02); Immature Granulocytes % (auto) 0.3 %; Lymphocytes # (auto) 0.58 K/uL (1.2-3.4); Lymphocytes % (auto) 4.5 %; Monocytes % (auto) 4.6 %; Neutrophils # (auto) 11.68 K/uL (1.4-6.5); Neutrophils % (auto) 90.4 %
[2022-04-23] MEDS: SODIUM CHLORIDE 0.9% 1000ML 1,000 ML IV SCH (01:25)
[2022-04-23] MEDS: KETOROLAC TROMETHAMINE 15 MG/ML VIAL IV SCH ×4 (04:52→21:05)
[2022-04-23] MEDS: ceFAZolin 2000MG 2,000 MG/15 ML SYR IV SCH (05:00)
[2022-04-23] MEDS: ACETAMINOPHEN 500 MG TAB PO SCH ×3 (05:01→21:06)
[2022-04-23 05:33] LABS: Appearance Urine Cloudy (Clear); Bacteria Urine Automated Negative (Negative); Blood Urine 3+ (Negative); Color Urine Dark Yellow; Glucose Urine UA Negative (Negative); Ketones Urine 1+ (Negative); Leukocyte Esterase Urine 1+ (Negative); Nitrite Urine Negative (Negative); Protein Urine 1+ (Negative); RBC Urine Automated >30 /hpf (0-4); Specific Gravity Urine 1.043 (1.000-1.030); Urobilinogen Urine Negative (Negative); pH Urine 5.5 (4.5-7.5)
[2022-04-23 05:35] LABS: Bilirubin Urine 1+ (Negative)
[2022-04-23 06:51] LABS: Estimated Average Glucose 117 mg/dl; Hemoglobin A1C 5.7 % (4.5-5.6)
[2022-04-23 06:59] LABS: Hemoglobin 12.6 g/dl (14.0-18.0); Mean Corpuscular Hemoglobin 31.4 pg (25.0-34.0); Mean Corpuscular Volume 89.8 fL (80.0-100.0); Mean Platelet Volume 10.2 fL (9.4-12.4); Platelet Count 226 K/uL (130-400); RDW Coefficient of Variation 12.8 % (11.5-14.5); RDW Standard Deviation 42.1 fL (36.4-46.3); Red Blood Count 4.01 M/uL (4.63-6.08); White Blood Count 9.48 K/ul (4.8-10.8)
[2022-04-23 07:27] LABS: BUN Creatinine Ratio 21.3 (10-20); Calcium 7.9 mg/dl (8.5-10.1); Creatinine Clr Calc Pharmacy 85.3 ml/min; Est GFR (African American) 94.2 ml/min; Est GFR (Non-African American) 81.2 ml/min; Potassium 3.9 mmol/L (3.5-5.1)
[2022-04-23] MEDS: DOCUSATE SODIUM 100 MG CAP PO SCH ×2 (08:26→20:32)
[2022-04-23] MEDS: VITAMIN B COMPLEX TAB PO SCH (08:26)
[2022-04-23] MEDS: TAMSULOSIN HCL 0.4 MG CAP PO SCH (08:26)
[2022-04-23] MEDS: ASPIRIN 81 MG ECTAB PO SCH ×2 (08:26→20:31)
[2022-04-23] MEDS: CALCIUM 600MG + VIT D 400 IU TAB PO SCH (08:26)
[2022-04-23] MEDS: DOCUSATE SODIUM/SENNA 50/8.6MG TAB PO SCH ×2 (08:27→20:32)
[2022-04-23] MEDS: MULTIVITAMIN TAB PO SCH (08:27)
[2022-04-23] MEDS: ASCORBIC ACID 500 MG TAB PO SCH (08:28)
[2022-04-23] MEDS: PANTOprazole 40 MG TAB PO SCH (08:28)
[2022-04-23] MEDS: LOSARTAN POTASSIUM 50 MG TAB PO SCH (08:29)
[2022-04-23] MEDS: TAPENTADOL HCL ER 50 MG TABCR PO SCH ×2 (08:34→20:31)
[2022-04-23] MEDS: INSULIN ASPART PER UNIT SC SCH ×4 (08:34→21:01)
[2022-04-23] MEDS ORDERED: NON-FORMULARY MEDICATION (Biotin 5 mg capsule) PO SCH (09:00)
[2022-04-23] MEDS ORDERED: NON-FORMULARY MEDICATION (Multivitamin tablet) PO SCH (09:00)
--- NOTE | 2022-04-23 09:10 | XRay Report ---
XR chest 1V portable HISTORY: postop fever, tachycardia COMPARISON: Chest 04/01/2022. FINDINGS: There are low lung volumes. The heart is borderline enlarged. Left basilar linear densities favor subsegmental atelectasis. Questionable patchy right upper lobe airspace opacity. No evidence f or pulmonary edema. Degenerative changes again noted within the shoulders. No pleural effusions. No p neumothorax. IMPRESSION: Possible developing patchy airspace opacity within the right upper lobe. This could represent a pneum onia. ACT 112: Negative or not required by law. Electronically signed by: Jeff Raman M.D. 04/23/2022 9:08 AM
--- NOTE | 2022-04-23 09:13 | Progress Notes ---
DATE OF SERVICE: 04/23/2022. 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 He is doing pretty well. Had a fever and was a little bit tachycardic last night, but feeling much better this morning. No chest pain or shortness of breath. Not feeling dizzy or li ghtheaded. OBJECTIVE: VITAL SIGNS: Temperature 36.8. Vital signs are stable. Pulse 72. PHYSICAL EXAMINATION: GENERAL: Shows a pleasant middle-aged female. Sitting up in his bedside chair, looks quite comforta ble. Looks at baseline. LUNGS: Clear to auscultation. HEART: Has a regular rate and rhythm. ABDOMEN: Soft, nontender, nondistended. EXTREMITIES: Grossly neurovascularly intact, except as follows: Examination of the left leg reveals the dressing to be clean, dry and intact. He can dorsiflex and plantarflex his foot appropriately. He is neurologically intact. LABORATORY DATA: Hemoglobin 12.6. Hematocrit 36.0. Electrolytes are stable. Culture results are p ending. ASSESSMENT: A 71-year-old gentleman now postoperative day 1 from a revision knee arthroplasty for as eptic loosening, doing well. A bit of a fever and tachycardic last night, but got better this morning . He looks good, and at baseline. PLAN: 1. DVT prophylaxis includes thigh-high TEDs, SCDs, and aspirin twice a day. 2. PT, OT, weightbear as tolerated. Left total knee protocol. 3. Pain control, doing okay with current pain regimen. 4. Disposition: Plan to discharge to home with some home health. We are going to see how therapy g oes today. Possible discharge tomorrow. Job ID: [id number]
--- NOTE | 2022-04-23 12:42 | Pharmacy Report ---
Pharmacy Glycemic Short Note 2 - Date of Service April 23, 2022 - Glycemic Short BSG Results (Last 24 hours): 04/22/22 04/22/22 04/22/22 17:11 21:03 23:41 Glucose 120 H POC Glucose 92 97 04/23/22 04/23/22 04/23/22 06:18 07:55 12:25 Glucose 110 H POC Glucose 112 H 83 OUTPATIENT ANTIDIABETIC REGIMEN: * metformin 500 mg PO BIDM * HbA1C = 5.7% ASSESSMENT: * Mr Patten is a 71 y/o M with a PMH of T2DM who presents with postop TKA. * BSGs yesterday were 101-92-97 mg/dL. Today's BSGs are 112-83 mg/dL. * Patient received 2 units of Novolog yesterday postop. * Will remove CR since BSGs trended down at lunch + metformin to be resumed at dinnertime. PLAN FOR INPATIENT GLYCEMIC CONTROL: * metformin 500 mg BIDM * Basal insulin * HOLD * Bolus insulin * NovoLog per scale ACHS or Q6hrs while NPO * Goal Range: Low 110 mg/dL - High 140 mg/dL * Correction Factor: 25 mg/dL/unit * Nutritional / Prandial insulin per carb ratio of 1 unit per - grams CHO consumed
[2022-04-23] MEDS: metFORMIN HCL 500 MG TAB PO SCH (17:36)
--- NOTE | 2022-04-23 18:19 | Hospitalist Progress Note ---
Date of Service April 23, 2022 Assessment & Plan (1) Postoperative fever: Plan: This is a 71-year-old male with a history of iron deficiency anemia, hyperlipidemia, prediabetes, hypertension, Gonzales's esophagus, GERD, and degenerative joint disease who presented to [facility] under the care of the orthopedic service for left knee revision in context of aseptic femoral loosening. Following his procedure, he developed postoperative fever and tachycardia for which a medicine consultation was requested. Postoperative Fever - Acute onset of diaphoresis, flushing, tachycardia, and fever in the postoperative period without reported discomfort/symptoms; subsequently spontaneously resolved - Patient subjectively reports a similar reaction has occurred after receiving Keflex and PCN in the past - Work-up as follows: - Normal RR, SpO2, and BP without respiratory symptoms or appreciable leg swelling on exam - WBC 13 with L shift and lymphopenia on 04/22 which has since resolved as of 04/23 - Procal <0.05; Elevated CRP 2.28 in the context of post-op period - CXR: possible developing patchy opacity in RUL but pt is asymptomatic of this - Reported history of similar reactions when receiving PCN/Keflex in the past; no rash or edema on exam - Perioperative RX: Metoclopramide, Ancef, spinal anesthesia, vancomycin, tranexamic acid, Toradol - Unclear source at this point. DDX: tissue damage, atelectasis, drug reaction? lower suspicion for post op infection or VTE - Fever and tachycardia spontaneously resolved early in the evening ; given th is, lower acute concern for evolving infection - Continue VTE prophylaxis with ASA b.i.d. - Continue incentive spirometry - reviewed technique with patient - At this time, given complete resolution of event, do not believe there is an indication to expand to broad-spectrum ABX - Recheck CBC tomorrow Tachycardia - Exam and ECG both consistent with sinus tachycardia with intermittent ectopy - Suspect likely secondary to febrile response above, see aforementioned differential - Since it has resolved, do not believe there is a reason to transition to telemetry (2) Prediabetes: Plan: - A1c at 6.1% in 10/2021 - Lifestyle modifications ongoing per recent PCP notes - SSI ordered - continue to maintain BSG target range of 100-140 (3) Hypertension: Plan: - Continue losartan (4) Aseptic loosening of prosthetic knee: Plan: - s/p L knee revision by Dr. Nguyen - PT/OT - IS - Pain control - Orthopedic f/u Plan At this time, pt is medically stable from medicine standpoint. No need for adding broad spectrum abx. Afebrile for the past nearly 24 hours with normal wbc count. No further recommendations, will sign off but feel free to contact if any questions or acute issues should arise. Thank you for allowing us to participate in the care of your patient. Plan to be d/w Dr. Velasco. Admission and Anticipated Discharge Date Admission Date: April 22, 2022 Subjective Patient seen on rounds this morning. He has no complaints. Delgado removed hasn't voided yet. No further fevers since yesterday evening. Denies cp, dyspnea, cough, n/v/d, headache. No symptoms prior to admission or abd pain. Review of Systems Review of Systems: All systems reviewed and are unremarkable except as noted in HPI and below. Denies fever, chills, fatigue, headache, nasal congestion, sore throat, cough, chest pain, shortness of breath, palpitations, orthopnea, PND, abdominal pain, n/v/d, constipation, dysuria, hematuria, frequency, back pain, joint pain or swelling, easy bruising or bleeding, skin lesions or rashes. Physical Exam Physical Exam: GENERAL: 71 yo Well-developed, well-nourished WM NAD. LUNGS: Nonlabored, diminished in bases b/l. CARDIOVASCULAR: Regular rate and rhythm. No M/G/R. No JVD. ABDOMEN: Soft, non-tender and non-distended. BS normoactive x 4 quad. EXTREMITIES: No edema. Non-tender. Peripheral pulses +2/4. L knee dressed and wrapped in eveline. NV intact. Neg bethanie's sign. NEUROLOGIC: A&O x3. PSYCHIATRIC: Cooperative. Appropriate mood and affect. SKIN: Warm, dry, intact. No rashes or lesions. Results & Data Results & Data ([facility]) Vital Signs (Past 12 Hours) Vital Signs Temp Pulse Resp BP BP Pulse Ox O2 Del Method 04/23/22 14:19 36.9 C 76 17 109/66 97 Room Air 04/23/22 10:56 36.7 C 74 16 135/58 L 97 Room Air 04/23/22 07:20 Room Air 04/23/22 08:31 105/66 04/23/22 07:11 36.8 C 72 16 94/65 L 94 Room Air Laboratory Results 04/23/22 06:18 04/23/22 06:18 PG Care Time/CCT Total # of Minutes Spent Total Time Spent with Patient: Total time spent is greater than 50% in coordination of care (as documented) at patient's floor/unit and/or counseling patient: Coding Level of Care Code 03207 Subseq Hosp Care Lvl 2 Diagnoses Postoperative fever R50.82 Prediabetes R73.03 Hypertension I10 Aseptic loosening of prosthetic knee T84.038A; Z96.659
--- NOTE | 2022-04-23 20:30 | Billing Data ---
Date of Service April 23, 2022 Coding Level of Care Code 07196 Inpt Consult Level 3
[2022-04-23] MEDS: FERROUS SULFATE 325 MG TAB PO SCH (20:33)
[2022-04-23] MEDS: LOSARTAN POTASSIUM 25 MG TAB PO SCH (20:34)
[2022-04-23] MEDS: SENNA 8.6 MG TAB PO SCH (20:34)
--- NOTE | 2022-04-23 21:22 | Electrocardiogram Report ---
Test Reason : Blood Pressure : / mmHG Vent. Rate : 098 BPM Atrial Rate : 098 BPM P-R Int : 184 ms QRS Dur : 098 ms QT Int : 350 ms P-R-T Axes : 032 -22 043 degrees QTc Int : 446 ms Sinus rhythm with frequent Premature ventricular complexes and Premature atrial complexes Otherwise normal ECG When compared with ECG of 01-APR-2022 09:25, Premature ventricular complexes are now Present Premature atrial complexes are now Present Vent. rate has increased BY 39 BPM QT has lengthened Confirmed by Rudy Dickey ([id number]) on 04/23/2022 9:22:05 PM Referred By: Mukund Nguyen Confirmed By:Rudy Dickey
[2022-04-24] MEDS: KETOROLAC TROMETHAMINE 15 MG/ML VIAL IV SCH ×2 (03:41→09:30)
[2022-04-24] MEDS: ACETAMINOPHEN 500 MG TAB PO SCH (05:54)
--- NOTE | 2022-04-24 08:06 | Progress Notes ---
DATE OF SERVICE: 04/24/2022. SUBJECTIVE: A 71-year-old gentleman, postoperative day 2 from a left revision knee arthroplasty for aseptic loosening. He is doing well. Pain is controlled. No chest pain or shortness of breath. Ho ping to go home. OBJECTIVE: VITAL SIGNS: Temperature 37.3. Vital signs are stable. PHYSICAL EXAMINATION: GENERAL: Shows a pleasant middle-aged male. He is sitting up in his bedside chair, looks comfortabl e. LUNGS: Clear to auscultation. HEART: Regular rate and rhythm. ABDOMEN: Soft, nontender, nondistended. EXTREMITIES: Grossly neurovascularly intact, except as follows: Examination of the left knee reveal s just a little bit of bloody drainage at the inferior aspect of his dressing. He can dorsiflex and plantarflex his foot appropriately. He is neurologically intact. LABORATORY DATA: Culture results: Cultures are from all no growth to date. ASSESSMENT: A 71-year-old gentleman postoperative day 2 from revision arthroplasty for aseptic loose hilda, doing well. No growth to date. PLAN: 1. DVT prophylaxis includes thigh-high TEDs, SCDs, and aspirin twice a day. 2. PT, OT, weightbear as tolerated. Left total knee protocol. 3. Pain control, doing okay with current pain regimen. 4. Disposition: Plan to discharge to home with some home health later today. We are going to give him one week of p.o. antibiotics due to the revision surgery. Job ID: [id number]
[2022-04-24] MEDS: DOCUSATE SODIUM 100 MG CAP PO SCH (08:23)
[2022-04-24] MEDS: TAPENTADOL HCL ER 50 MG TABCR PO SCH (08:23)
[2022-04-24] MEDS: DOCUSATE SODIUM/SENNA 50/8.6MG TAB PO SCH (08:23)
[2022-04-24] MEDS: ASCORBIC ACID 500 MG TAB PO SCH (08:23)
[2022-04-24] MEDS: CALCIUM 600MG + VIT D 400 IU TAB PO SCH (08:23)
[2022-04-24] MEDS: ASPIRIN 81 MG ECTAB PO SCH (08:23)
[2022-04-24] MEDS: LOSARTAN POTASSIUM 50 MG TAB PO SCH (08:24)
[2022-04-24] MEDS: PANTOprazole 40 MG TAB PO SCH (08:24)
[2022-04-24] MEDS: TAMSULOSIN HCL 0.4 MG CAP PO SCH (08:24)
[2022-04-24] MEDS: VITAMIN B COMPLEX TAB PO SCH (08:24)
[2022-04-24] MEDS: MULTIVITAMIN TAB PO SCH (08:24)
[2022-04-24] MEDS: INSULIN ASPART PER UNIT SC SCH (08:25)
--- NOTE | 2022-04-24 09:05 | Pharmacy Report ---
Pharmacy Glycemic Sign Off Nt - Date of Service April 24, 2022 - Assessment & Plan ASSESSMENT: * Pharmacy was consulted by Dr. Nguyen on 04/22/22 for glycemic control and to write orders per [facility] inpatient glycemic control protocol. * Major changes made by pharmacy to antidiabetic regimen include: * Started patient on bolus insulin only. * Have added Metformin now and removed carb ratio. * Patient received 11 units of insulin yesterday for adequate glycemic control * BSGs ranging 83-129 mg/dl * Regimen has only required minor adjustments over the past 48hrs to achieve this level of control * Do not anticipate further changes in patient status that would quickly deterio rate glycemic control (i.e. patient to be NPO for upcoming procedure, steroids tapering, starting tube feedings, etc). * Continue Metformin upon discharge. PLAN FOR INPATIENT GLYCEMIC CONTROL: No changes needed to current regimen. * No basal insulin * Continue Metformin 500 mg PO BIDM * Continue NovoLog per scale ACHS/Q6hrs while NPO * Goal range = 110-140 mg/dl * CF = 25 mg/dl/unit * No carb ratio * Pharmacy is signing off of glycemic consult and will no longer be making adjustments to inpatient regimen. Please feel free to re-consult if needed. Thank you.
[2022-04-24] MEDS: metFORMIN HCL 500 MG TAB PO SCH (09:30)
--- NOTE | 2022-05-03 19:46 | Discharge Summary ---
Date of Service May 03, 2022 Discharge Data Consultations 04/22/22 22:53 Consult Hospitalist Routine Procedures Performed Operation Date: 04/22/22 10:55 Actual Procedures p Left Total Knee Revision(Left) - Mukund Nguyen MD Hospital Course (1) Status post revision of total replacement of left knee: This is a 71 year old patient admitted on 04/22/22 and underwent total knee revision. He tolerated the procedure well and there were no complications. Transferred to the PACU post op and later to the orthopedic floor for further care. He was given ancef for antibiotic prophylaxis. He was also given ERLINDA stockings, SCDs, and aspirin for DVT prophylaxis. Hemoglobin, hematocrit, and vital signs were monitored during his hospital stay and remained stable. The hospitalist service was consulted due to post op fever/tachycardia. Did not require any blood transfusions. There were no complications during his hospital stay. By post op day #2 the patient was tolerating a diabetic diet, pain was reasonably controlled with oral pain medicine, and he was participating in physical therapy. On post op day #2 the patient was discharged home and set up with home health care. He was given printed discharge instructions including prescriptions for extra strength tylenol, aspirin, toradol, clindamycin, zofran, oxycodone, senokot, and flomax. Continue physical therapy, weight bearing as tolerated. Continue ERLINDA stockings. Follow up approximately 2 weeks post op or sooner if there are problems or concerns. Coding Level of Care Code None Diagnoses Status post revision of total replacement of left knee Z96.652
== END 2022-04-24 11:42 | disposition home or self-care (01) | DRG 468 ==
LOC: ASU 08:22 → 3E 14:42
DX: Z79.82 Long term (current) use of aspirin; R50.82 Postprocedural fever; Z88.1 Allergy status to other antibiotic agents; Z96.653 Presence of artificial knee joint, bilateral; Z79.1 Long term (current) use of non-steroidal anti-inflammatories (NSAID); T36.1X5A Adverse effect of cephalosporins and other beta-lactam antibiotics, initial encounter; R50.2 Drug induced fever; E11.9 Type 2 diabetes mellitus without complications; E78.5 Hyperlipidemia, unspecified; K21.9 Gastro-esophageal reflux disease without esophagitis; T84.033A Mechanical loosening of internal left knee prosthetic joint, initial encounter; R00.0 Tachycardia, unspecified; Z88.0 Allergy status to penicillin; Z87.891 Personal history of nicotine dependence; I10 Essential (primary) hypertension; K22.70 Barrett's esophagus without dysplasia; Z79.899 Other long term (current) drug therapy; Y79.2 Prosthetic and other implants, materials and accessory orthopedic devices associated with adverse incidents; Z79.84 Long term (current) use of oral hypoglycemic drugs; D50.9 Iron deficiency anemia, unspecified